=== PATIENT | female | born 1935 | race Caucasian/White ===

== ENCOUNTER → 2019-05-26 | Outpatient (CLI) | payer MEDICARE, MEDICAID ==
[~2019-05-26] MED LIST: AC325T PO; ASP81TEC PO; CEFD300C PO; CHOL100011 PO; CYAN10007 PO; DRON400T2 PO; FERR325C PO; FURO20TA4 PO; METH5TAB6 PO; MULT-974 PO; Metoprolol Succinate PO; PITA2TAB2 PO; POTA10CA43 PO
--- NOTE | 2019-05-26 16:23 | Diagnostic Imaging Report ---
INDICATION: Right arm pain and swelling. FINDINGS: Sonographic interrogation of the posterior right shoulder at an area of lump was performed. This area corresponds to an ovoid area of hypoechogenicity measuring 5.3 x 2.0 x 5.4 cm. No internal vascularity is seen. This may represent a lipoma. There is a small probable cyst as well measuring approximately 4 mm. No other abnormalities are seen. IMPRESSION: Questionable lipoma at the area of palpable abnormality. Confirmation could be obtained by obtaining a CT scan to confirm fat density. No fluid collection is identified. Dictated by: Dictated on workstation # [id number]
--- NOTE | 2019-05-26 16:27 | Diagnostic Imaging Report ---
INDICATION: Right arm pain and swelling. TIME OF EXAMINATION: 3:43 PM. TECHNIQUE: Three views of the right shoulder were obtained. FINDINGS: The glenohumeral and acromioclavicular alignment is normal. The acromiohumeral space is normal. No fracture or dislocation is seen. IMPRESSION: No acute bony abnormality is detected. Dictated by: Dictated on workstation # [id number]
--- NOTE | 2019-05-26 16:28 | Diagnostic Imaging Report ---
INDICATION: Right arm pain and swelling. TIME OF EXAMINATION: 3:51 PM. TECHNIQUE: Two views of the right humerus were obtained. FINDINGS: The alignment at the shoulder and elbow is normal. The humerus is intact. No fracture is identified. IMPRESSION: No acute bony abnormality is detected. Dictated by: Dictated on workstation # [id number]
== END ==
LOC: RAD 15:19
PROVIDERS: ATTEND Nurse Practitioner Family
DX: M79.89 Other specified soft tissue disorders (principal)
CPT/HCPCS: 73030; 73060; 76881